=== PATIENT | male | born 2000 ===

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

== ENCOUNTER 2021-01-06 09:44 | Day surgery (SDC) | payer MEDICAID ==
--- NOTE | 2021-01-06 09:41 | HP ---
DATE OF SURGERY: 01/06/2021 HISTORY OF PRESENT ILLNESS: The patient is a 20 year-old with some epigastric pain upper abdominal intermittently had liver function test that was slightly off, some increased loose stools. Gallbladder ultrasound showed sludge. No specific food trigger. PAST MEDICAL HISTORY: Denies any chronic illnesses. PAST SURGICAL HISTORY: Denies prior abdominal surgery. MEDICATIONS: None on a regular basis. ALLERGIES: PENICILLIN. AMOXICILLIN. FAMILY HISTORY: Negative in regards to this problem. SOCIAL HISTORY: No current smoking or alcohol abuse. REVIEW OF SYSTEMS: Fourteen systems reviewed. No chest pain or palpitations. Other systems negative or noncontributory as above and per preadmission questionnaire. PHYSICAL EXAMINATION: GENERAL: No acute distress. HEENT: Sclerae nonicteric. NECK: No JVD. CHEST: Equal excursion, nonlabored breathing. CVS: Regular rate and rhythm. ABDOMEN: Soft. No peritoneal signs. EXTREMITIES: No significant edema. NEURO: Alert, oriented, moving extremities symmetrically. PSYCH: Appropriate mood and affect. IMPRESSION: Mid epigastric pain, abnormal gallbladder ultrasound with biliary sludge. Acute exacerbation chronic cholecystitis, symptomatic biliary sludge and sludge passing through duct system may account for slight abnormal liver function test. He understands and agrees to the procedure, will proceed with laparoscopic cholecystectomy possible open as an outpatient. Risks and benefits explained in detail including but not limited to bleeding or infection, risk of bowel injury or perforation possibly requiring further procedure, risk of missed or nondiagnosis or incomplete exam possibly requiring endoscopy, other studies or procedures, general risk of anesthesia, aches, pains, burning, numbness, perioperative aches, pains, bloating, constipation, loose stools possibly chronic in nature. He understands risk of retained sludge or stone possibly requiring ERCP, other studies or procedures, will proceed with laparoscopic cholecystectomy with possible open as an outpatient.
[~2021-01-06 09:44] MED LIST: Lactated Ringers 1,000 ML IV ONE; Sensorcaine 0.25% 10 ML ONE
[2021-01-06] MEDS ORDERED: Lactated Ringers 1,000 ML IV SCH (10:30)
[2021-01-06] MEDS ORDERED: CLINDAMYCIN-D5W 900 MG/50 ML*** 900 MG/50 ML BAG IV STA (10:34)
[2021-01-06] MEDS ORDERED: Lactated Ringers 1,000 ML IV ONE ×2 (10:35→13:17)
[2021-01-06] MEDS ORDERED: CLINDAMYCIN-D5W 900 MG/50 ML*** 900 MG/50 ML BAG IV ONE (10:35)
[2021-01-06] MEDS ORDERED: Levofloxacin 500MG/100ML D5W 500 MG/100 ML BAG IV ONE (10:35)
[2021-01-06] MEDS ORDERED: Levofloxacin 500MG/100ML D5W 500 MG/100 ML BAG IV STA (10:35)
[2021-01-06] MEDS ORDERED: Xylocaine-Mpf 2% 5 Ml Vial ONE (12:24)
[2021-01-06] MEDS ORDERED: DIPRIVAN 200 MG/20 ML IV ONE (12:24)
[2021-01-06] MEDS ORDERED: Zofran 4 MG/2 ML VIAL ONE (12:24)
[2021-01-06] MEDS ORDERED: BRIDION 200MG/2ML IV ONE (12:24)
[2021-01-06] MEDS ORDERED: SUBLIMAZE 100 MCG/2 ML ONE ×2 (12:24→13:37)
[2021-01-06] MEDS ORDERED: Decadron 4 MG INJ ONE (12:24)
[2021-01-06] MEDS ORDERED: Versed 2 MG/2 ML Injection ONE (12:24)
[2021-01-06] MEDS ORDERED: TORAdol 30 mg Injection ONE (12:24)
[2021-01-06] MEDS ORDERED: Zemuron 100 MG/10 ML ONE (12:24)
[2021-01-06] MEDS ORDERED: Ephedrine Sulfate 50 MG/ML ONE (13:22)
[2021-01-06 15:19] VITALS: O2SAT 99
[2021-01-06 15:25] VITALS: BP 119/84; PULSE 76
--- NOTE | 2021-01-07 11:00 | OP ---
SURGERY DATE/TIME: 01/06/2021 1251 PREOPERATIVE DIAGNOSIS: Acute exacerbation chronic cholecystitis, symptomatic biliary sludge. POSTOPERATIVE DIAGNOSIS: Acute exacerbation chronic cholecystitis, symptomatic biliary sludge. PROCEDURE: Laparoscopic cholecystectomy. SURGEON: Dr. Stanley Mena. ANESTHESIA: General. ESTIMATED BLOOD LOSS: Minimal. INDICATIONS: As noted above. Risks and benefits explained in detail but not limited to and consent obtained. DESCRIPTION OF PROCEDURE AND FINDINGS: The patient was taken to the operating room. General anesthesia induced. Abdomen prepped and draped in the usual sterile fashion. A transverse incision made at the supraumbilical area. Fascia grasped and pulled upward. Veress needle inserted and tested with saline. Pneumoperitoneum accomplished opening pressure of 0 -15. An 11 mm bladeless port and camera inserted without difficulty followed by two - 5 mm right upper quadrant ports and 5 mm epigastric port. The gallbladder is grasped. It had some omental adhesions on it, some chronic inflammation. Dissecting posterior, lateral to anterior fashion slowly and carefully the cystic duct and cystic artery were well skeletonized, clipped x3 and divided in the usual fashion. This was after the critical view obtained anteriorly and posteriorly. This was quite a vascular gallbladder requiring clipping pulsatile oozing side branches off the cystic artery directly on the gallbladder wall as necessary and this took some extra time but staying directly on the gallbladder wall the gallbladder slowly and carefully dissected free from its dense attachments to the liver bed. Just prior to releasing from final attachments to the anterior edge of the liver, the liver bed re-inspected. Clips noted in place cystic duct and cystic artery stumps. No signs of any active bleeding or bile leakage. It was felt there was no benefit from drain placement. Gallbladder released from final attachments anterior to the liver, pulled up and out the supraumbilical port site and passed off. The fascia defect closed with puncture closure device with #1 Vicryl under direct vision of the camera. Liver bed re-inspected. Clips noted in place cystic artery and cystic artery stumps. No signs of any active bleeding or bile leakage. It was felt there is no benefit from drain placement. Pneumoperitoneum decompressed. The wound irrigated out. Skin incision closed with 4-0 Vicryl. Steri-Strips and sterile dressing applied. 0.25% Marcaine local injected along the skin incision fascial defect. The patient tolerated the procedure well. Findings discussed with the family out in the waiting area.
== END 2021-01-06 15:15 | disposition home or self-care (01) ==
LOC: SDC 09:44
PROVIDERS: ATTEND Surgery
DX: K81.0 Acute cholecystitis (principal); K83.8 Other specified diseases of biliary tract
CPT/HCPCS: J1100; J1885; J1956; J2250; J2405; J2704; J3010